=== PATIENT | male | born 1975 | race Hispanic/Latino ===

== ENCOUNTER 2021-02-04 08:49 | Day surgery (SDC) | payer BC ==
[2021-02-03 11:59] LABS: Absolute Lymphocytes (CBC) 2.1 K/uL (0.7-4.9); Basophils % 0.8 % (0-1.3); Hematocrit 39.5 % (39.6-49.0); MPV 8.1 fL (7.6-11.3); RBC Red Blood Cell Count 4.56 M/uL (4.33-5.43)
[2021-02-03 12:10] LABS: Potassium 3.8 mmol/L (3.5-5.1)
--- NOTE | 2021-02-03 12:17 | RAD REPORT ---
EXAM DESCRIPTION: RAD - Chest Pa And Lat (2 Views) - 02/03/2021 12:08 pm CLINICAL HISTORY: PREOP, SAME DAY SURGERY COMPARISON: No comparisons FINDINGS: Lines: None. Lungs: No evidence of edema or pneumonia. Pleural: No significant pleural effusions or pneumothorax. Cardiac: The heart size is within normal limits. Bones: No acute fractures. Other: IMPRESSION: No acute cardiopulmonary disease.
[2021-02-04] MEDS ORDERED: NA CHLORIDE 0.9% 1,000 ML ONE (09:38)
[2021-02-04] MEDS ORDERED: CEFAZOLIN/NS 1gm 1 GM/50 ML BAG ONE (09:50)
[2021-02-04] MEDS ORDERED: ACETAMINOPHEN 500 MG TAB ONE (11:22)
[2021-02-04] MEDS ORDERED: CELECOXIB 100 MG CAPSULE ONE (11:22)
[2021-02-04] MEDS ORDERED: LIDOCAINE 2% MPF 5 ML VIAL ONE (11:43)
[2021-02-04] MEDS ORDERED: FENTANYL CITR 100 MCG/2 ML ONE (11:43)
[2021-02-04] MEDS ORDERED: MIDAZOLAM HCL 2 MG/2 ML INJ ONE (11:43)
[2021-02-04] MEDS ORDERED: propofoL 200 MG/20 ML VIAL IV ONE (11:44)
[2021-02-04] MEDS ORDERED: ROCURONIUM 50 MG/5 ML VIAL IV ONE (11:44)
[2021-02-04] MEDS ORDERED: GLYCOPYRROLATE 0.2 MG/ML SYR ONE (11:50)
[2021-02-04] MEDS ORDERED: dexAMETHasone 10 MG/ML VIAL ONE (11:53)
[2021-02-04] MEDS ORDERED: ONDANSETRON 4 MG/2 ML VIAL ONE ×2 (11:53→13:42)
--- NOTE | 2021-02-04 12:37 | P.BOP ---
Preoperative diagnosis: incarcerated tender ventral hernia Postoperative diagnosis: same Primary procedure: Open repair of incarcerated ventral hernia [employer] Admin: CRISTHIAN FERRELL (HVAC REFRIGERATION TECHNICIAN) Estimated blood loss: <10cc Specimen: sac Findings: as above Anesthesia: General Complications: None Transferred to: Recovery Room Condition: Good
[2021-02-04] MEDS: HYDROMORPHONE HCL 1 MG/ML INJ ONE ×4 (12:58→13:36)
[2021-02-04] MEDS ORDERED: NEOSTIGMINE 1 MG/ML -5 ML ONE (13:00)
[2021-02-04] MEDS ORDERED: KETOROLAC 30 MG/ML INJ ONE (13:13)
[2021-02-04] MEDS ORDERED: CODEINE 30MG/APAP 300MG TAB ONE (14:44)
[2021-02-04 15:04] VITALS: BP 100/50; TEMP 98; O2SAT 98
--- NOTE | 2021-02-04 16:47 | EKG ---
Test Date: 2021-02-03 Test Time: 10:57:27 Clinical Auditor: CANDICE MEASUREMENT RESULTS: Intervals: Rate: 67 CT: 134 QRSD: 80 QT: 364 QTc: 384 [place]: P: 34 CT: 134 QRS: 36 T: 19 INTERPRETIVE STATEMENTS: Normal sinus rhythm Normal ECG No previous ECG available for comparison Electronically Signed On 02-04-21 16:43:07 CDT by Rodolfo Nogueira
--- NOTE | 2021-02-09 14:21 | DS ---
Date of Discharge: 02/04/2021 Diagnosis: Incarcerated tender ventral hernia. Procedure: Open repair of incarcerated ventral hernia. Disposition: Home. Activity: As tolerated. No heavy lifting. Plan: Follow up in my office in 1 week. Call for appointment at [phone]. Keep area dry for 48 lucila rs, then may shower. Medications: See orders. MANAV/ISABELLA Voice ID: [id number] Report ID: [id number]
--- NOTE | 2021-02-10 15:05 | OP ---
Date of Procedure: 02/09/2021 Surgeon: Ming Cruz MD Production Manager: TORRES Ibrahim. Preoperative Diagnosis: Incarcerated tender ventral hernia. Postoperative Diagnosis: Incarcerated tender ventral hernia. Procedure: Open repair of incarcerated ventral hernia. Specimen: Hernia sac. Anesthesia: General plus local. Indication: This is the case of a 45-year-old patient, who comes to us with a tender incarcerated ve ntral hernia. Benefits, alternatives, and risks of repair were fully explained, which include, but n ot limited to infection, bleeding, damage to adjacent structures, anesthesia complication, recurrence , NC, and even . He also understands this may not relieve any symptoms. He might need more maria de jesus n one surgical intervention. He understood, signed a consent. He understands the importance of no h eavy lifting, also importance of losing weight. Procedure In Detail: The patient was brought to the operating room, placed in supine position. Anes thesia was done without complication. A time-out was called. Abdomen was prepped and draped in usua l sterile fashion. Marcaine 0.5% was injected for local anesthetic followed by sharp incision of ski n in the ventral region. Incision was carried down to fascia, which was opened under direct vision. Peritoneum was encountered. Hernia sac was encountered. Hernia sac was opened. We noticed incarce rated omentum to the area with adhesions, so carefully we have to remove adhesions down and trying to remove some of the omentum without any bleeding that looks viable, so we were able to deliberate maria de jesus t and be able to bring it back to the abdomen. The hernia sac was removed, fascial edges were clean and we proceeded to close the fascial edges in a [id number]-[id number] fashion and #1 prolene multiple time s until closure. The area was irrigated. Subcutaneous tissue was closed with 3-0 chromic and the sk in was approximated. Sponge count and instrument counts correct. The patient tolerated the procedur e well. The patient was sent to recovery in stable condition. MNAAV/ISABELLA Voice ID: [id number] Report ID: [id number]
--- NOTE | 2021-02-10 15:05 | DS ---
Date of Discharge: 02/04/2021 Diagnosis: Incarcerated tender ventral hernia Procedure: Open repair of incarcerated ventral hernia. Disposition: Home. Activity: As tolerated. No heavy lifting. Plan: Follow up in my office in 1 week. Call for appointment at [phone]. Keep the area dry for 48 hours, then may shower. Medications: See orders. MANAV/ISABELLA Voice ID: [id number] Report ID: [id number]
== END 2021-02-04 14:55 | disposition home or self-care (01) ==
LOC: OR 08:49
PROVIDERS: ATTEND Surgery
PROC: 0WQF0ZZ Repair Abdominal Wall, Open Approach (ICD-10-PCS; principal; 2021-02-04 10:45)
DX: K43.6 Other and unspecified ventral hernia with obstruction, without gangrene (principal); Z20.822 Contact with and (suspected) exposure to COVID-19
CPT/HCPCS: 93005; 85025; 80048; 36415; 82947 ×2; 88302; 71046; 49561; U0003; J2704; J2250; J3010; J1100; J1170 ×2; J2710; J0690; J7030; J2405 ×2

== ENCOUNTER 2021-06-25 09:50 | Emergency (ER) | payer BC ==
--- OUTSIDE RECORDS SUMMARY | 2021-06-25 09:56 | XMS REPORT | Continuity of Care Document ---
:1975 Author Organization [facility] t Address [address] [place] [address] [place] [id number] Care Team Providers Name Role Phone Daly Attending Clinician Unavailable Problems This patient has no known problems. Allergies, Adverse Reactions, Alerts This patient has no known allergies or adverse reactions. Medications Ordered Filled Start Stop Current Ordering Indication Dosage Frequency Signature Comments Components Source Medication Medication Date Date Medication? Clinician (SIG) Name Name MetFORMIN MetFORMIN Yes Joel [address] [facility] HCl ER HCl ER 4-29 [facility] Fenofibrate Fenofibrate Yes Joel [address] [facility] 1-02 Daly with [facility] Lipitor Lipitor Yes Joel [address] [facility] Lisinopril Lisinopril Yes Joel [address] [facility] Zoloft Zoloft Yes [facility] Immunizations Ordered Filled Immunization Date Status Comments Sourc e Immunization Name Name Afluria single dose Afluria single dose 2019-04-[address] [facility] Procedures This patient has no known procedures. Encounters Start End Encounter Admission Attending Care Care Encounter Source Date/Time Date/Time Type Type Clinicians Facility Department ID 2021-05-27 Outpatient Daly, [facility]LMLC [facility] [id number] [facility] 12[facility]02:59 Joel [id number] [facility] 2021-05-27 Outpatient Daly, [facility] Joel [id number] [facility] 2021-05-27 Outpatient Daly, [facility] 11:19[facility] Joel [id number] [facility] 2021-05-27 Outpatient Daly, [facility]18[facility] Joel [id number] [facility] 2021-05-27 Outpatient Daly, [facility]LML[facility]17[facility]38 Joel [id number] [facility] 2021-05-27 Outpatient Daly, [facility] Joel [id number] [facility] 2020-03-10 2020-03-10 Outpatient [facility] [id number] [facility] 2020-03-10 2020-03-10 Outpatient [facility] [id number] [facility] 2020-03-04 2020-03-04 Outpatient [facility] [id number] [facility] 2020-03-03 2020-03-03 Outpatient [facility] [id number] [facility] 2020-02-28 2020-02-28 Outpatient [facility] [id number] [facility] 2020-02-22 2020-02-22 Outpatient [facility] [id number] [facility] 2020-02-21 2020-02-21 Outpatient [facility] [id number] [facility] 2020-02-21 2020-02-21 [facility] [id number] [facility] 2020-02-18 2020-02-18 Outpatient [facility] [id number] [facility] 2019-08-29 2019-08-29 [facility] [id number] [facility] 08[facility]30[facility]00 08:30:00 [facility] [employer] [facility] 2019-05-31 2019-05-31 [facility] [id number] [facility] 14[facility]00:00 14:00:00 [facility] [employer] [facility] 2019-05-11 2019-05-11 [facility] [id number] [facility] 10:59:00 10:59:00 [facility] [employer] [facility] 2019-05-03 2019-05-03 [facility] [id number] [facility] 09:15:00 09:15:00 [facility] [employer] [facility] 2019-04-12 2019-04-12 [facility] [id number] [facility] 13:14:00 13:14:00 [facility] [employer] [facility] 2019-04-11 2019-04-11 [facility] [id number] [facility] 08:15:00 08:15:00 [facility] [employer] [facility] Results This patient has no known results.
[2021-06-25 10:25] LABS: Absolute Lymphocytes (CBC) 1.4 K/uL (0.7-4.9); Hematocrit 45.7 % (39.6-49.0); Lymphocytes % 12.1 % (15.3-44.8); MPV 8.1 fL (7.6-11.3); RBC Red Blood Cell Count 5.43 M/uL (4.33-5.43)
[2021-06-25] MEDS ORDERED: NA CHLORIDE 0.9% 1,000 ML ONE (10:36)
[2021-06-25] MEDS ORDERED: MORPHINE 4 MG/ML SYR ONE (10:36)
[2021-06-25] MEDS ORDERED: ONDANSETRON 4 MG/2 ML VIAL ONE (10:36)
[2021-06-25 10:52] LABS: Albumin 4.3 g/dL (3.4-5.0); Bilirubin Direct 0.2 mg/dL (0-0.2); Bilirubin Total 0.7 mg/dL (0.2-1.0); Protein, Total 7.9 g/dL (6.4-8.2)
--- NOTE | 2021-06-25 11:02 | RAD REPORT ---
EXAM DESCRIPTION: CT - Stone Protocol - 06/25/2021 10:43 am CLINICAL HISTORY: left sided abdominal pain COMPARISON: No comparisons TECHNIQUE: Axial 3 mm thick images were obtained without oral or IV contrast. The wludy-xn-chuv span s the entirety of the system including uppermost abdomen and lung bases. All CT scans are performed using dose optimization technique as appropriate and may include automated exposure control or mA/KV adjustment according to patient size. FINDINGS: A 4 mm juxtapleural nodule is present right lower lobe abutting the major fissure. A 10 mm calcified nodule is present in the lingula of the left upper lobe. No acute lung parenchymal process . No pneumothorax or pleural effusion. Mild left-sided hydronephrosis present secondary to a 2-3 mm stone at the UVJ. Left kidney is mildly edematous. No other left-sided calculi. Small 3 mm calyx calcifications seen upper pole of the right kidney. No suspicious renal masses. Isodense masses and pyelonephritis are not excluded on a stone pr otocol CT scan. No significant adrenal finding. Urinary bladder is contracted. Liver shows a very pronounced fatty infiltration pattern. Spleen and pancreas show no suspicious find ings. No gallbladder or biliary tree abnormality identified. No suspicious bowel findings. Appendix is normal. No hernia, mass or bulky lymphadenopathy noted. No free air, free fluid or inflammatory stranding. No significant bony abnormality. IMPRESSION: Mild left-sided hydronephrosis secondary to a 2-3 mm UVJ stone. Isodense masses and pyelonephritis are not excluded on stone protocol technique. Calcified and noncalcified nodules are seen in the lower lung solares. Based on size and imaging bart cteristics, no ongoing monitoring or surveillance is recommended.
[2021-06-25] MEDS ORDERED: KETOROLAC 30 MG/ML INJ ONE (11:13)
[2021-06-25 12:36] LABS: Urine Blood 3+ (Negative); Urine Glucose Negative (Negative); Urine Protein Negative (Negative); Urine Specific Gravity 1.025 (1.005-1.030); Urine pH 5.5 (5.0-7.0)
--- NOTE | 2021-06-25 12:39 | ER ---
Nurse's Notes [facility] Name: Eliot Ball III Age: 45 yrs Sex: Male : 1975 Arrival Date: 06/25/2021 Time: 09:50 Bed 14 Private MD: Allan Wilson C Diagnosis: Calculus of ureter Presentation: 06/25 09:55 Chief complaint: Patient states: non stop pain since 630 this morning, nausea and tw2 vomiting. small bit of diarrhea. pain is nonstop. Coronavirus screen: At this time, the client does not indicate any symptoms associated with coronavirus-19. Ebola Screen: Patient denies travel to an Ebola-affected area in the 21 days before illness onset. Initial Sepsis Screen: Does the patient meet any 2 criteria? No. Patient's initial sepsis screen is negative. Does the patient have a suspected source of infection? No. Patient's initial sepsis screen is negative. Risk Assessment: Do you want to hurt yourself or someone else? Patient reports no desire to harm self or others. Onset of symptoms was June 25, 2021. 09:55 Method Of Arrival: Ambulatory tw2 09:55 Acuity: LENIN 3 tw2 Triage Assessment: 09:57 General: Appears uncomfortable, Behavior is fussy, inappropriate for age. Pain: tw2 Complains of pain in abdomen. GI: Reports lower abdominal pain, upper abdominal pain, nausea. Historical: - Allergies: 09:57 No Known Allergies; tw2 - Home Meds: 09:57 atorvastatin oral [Active]; fenofibrate oral [Active]; tw2 10:05 Lisinopril Oral [Active]; "theres i think 2 more but i cant remember right now" tw2 [Active]; - PMHx: 10:05 Hypertensive disorder; Hypercholesterolemia; tw2 - PSHx: 09:57 hernia, abdominal; tw2 - Immunization history:: Client reports receiving the 2nd dose of the Covid vaccine. - Social history:: Smoking status: Patient denies any tobacco usage or history of. Patient uses alcohol, occasionally. Screenin:04 Abuse screen: Denies threats or abuse. Nutritional screening: No deficits noted. tw2 Tuberculosis screening: No symptoms or risk factors identified. Fall Risk None identified. Assessment: 10:03 General: Appears uncomfortable, well groomed, Behavior is calm, cooperative, cb5 appropriate for age. Pain: Complains of pain in abdomen Pain currently is 4 out of 10 on a pain scale. Neuro: No deficits noted. Level of Consciousness is awake, alert, obeys commands, Oriented to person, place, time, situation, Appropriate for age. Cardiovascular: No deficits noted. Respiratory: No deficits noted. GI: Bowel sounds present X 4 quads. Abd is soft Abdomen is tender to palpation Reports nausea, vomiting. : No deficits noted. EENT: No deficits noted. Derm: No deficits noted. Musculoskeletal: No deficits noted. 10:37 General: pt left ER dept fot CT scan. cb5 10:46 General: pt is back from CT scan. cb5 10:46 Pain: Complains of pain in abdomen Pain currently is 3 out of 10 on a pain scale. cb5 11:10 Pain: Complains of pain in abdomen Pain currently is 7 out of 10 on a pain scale. cb5 11:14 Reassessment: Patient and/or family updated on plan of care and expected duration. Pain cb5 level reassessed. 11:40 Reassessment: pt stated his pain is uncontrol and thanked the staff. Pain: Complains of cb5 pain in abdomen Pain currently is 3 out of 10 on a pain scale. 12:14 Reassessment: Patient and/or family updated on plan of care and expected duration. Pain cb5 level reassessed. Patient states symptoms have improved. Vital Signs: 09:55 BP 157 / 112; Pulse 83; Resp 17; Temp 98.2(TE); Weight 95.25 kg (R); Pain 10/10; tw2 10:10 BP 145 / 77; Pulse 78; Resp 16; Pulse Ox 98% ; Pain 6/10; cb5 12:10 BP 135 / 70; Pulse 71; Resp 16; Temp 98.6; Pulse Ox 98% ; Pain 0/10; cb5 ED Course: 09:50 Patient arrived in ED. as 09:51 Allan Wilson MD is Private Physician. as 09:55 Keenan Jaeger MD is Attending Physician. kdr 09:55 [facility]. m 09:57 Triage completed. tw2 09:57 Arm band placed on. tw2 09:58 Bed in low position. Call light in reach. tw2 10:03 Ramandeep Jacob, RN is Primary Nurse. cb5 10:36 Hepatic Function Sent. cb5 10:36 Basic Metabolic Panel Sent. cb5 10:36 Lipase Sent. cb5 10:43 CT Stone Protocol In Process Unspecified. EDMS 12:36 Juan Diego Damico MD is Referral Physician. jmm 13:01 IV discontinued. cb5 Administered Medications: 10:36 Drug: NS 0.9% 1000 ml Route: IV; Rate: 1 bolus; Site: right antecubital; cb5 10:37 Drug: morphine 4 mg Route: IVP; Site: right antecubital; cb5 10:37 Drug: Zofran (Ondansetron) 4 mg Route: IVP; Site: right antecubital; cb5 11:13 Drug: Ketorolac 15 mg Route: IVP; Site: right antecubital; cb5 Outcome: 12:38 Discharge ordered by . jmm 13:00 Discharged to home ambulatory. cb5 13:00 Condition: stable 13:00 Discharge instructions given to patient. 13:04 Patient left the ED. iw Signatures: Dispatcher [employer] EDMS Keenan Jaeger MD MD kdr Alexi Mcdermott PA PA Joann Rice as Angella Rainey, JOSE MARIA MOISE iw Tata Win RN RN tw2 Ramandeep Jacob, RN RN cb5 Corrections: (The following items were deleted from the chart) 10:05 09:55 Acuity: LENIN 2 tw tw
--- NOTE | 2021-06-25 12:39 | EDPHYS ---
Physician Documentation [facility] Name: Eliot Ball III Age: 45 yrs Sex: Male : 1975 Arrival Date: 06/25/2021 Time: 09:50 Bed 14 Private MD: Allan Wilson C ED Physician Keenan Jaeger HPI: 06/25 10:14 This 45 yrs old Male presents to ER via Ambulatory with complaints of jmm Abdominal Pain. 10:14 The patient presents with abdominal pain in the left lower quadrant. Onset: The jmm symptoms/episode began/occurred acutely, today. The symptoms do not radiate. Associated signs and symptoms: Pertinent positives: nausea. The symptoms are described as achy. Modifying factors: The symptoms are alleviated by nothing, the symptoms are aggravated by nothing. Historical: - Allergies: 09:57 No Known Allergies; tw2 - Home Meds: 09:57 atorvastatin oral [Active]; fenofibrate oral [Active]; tw2 10:05 Lisinopril Oral [Active]; "theres i think 2 more but i cant remember right now" tw2 [Active]; - PMHx: 10:05 Hypertensive disorder; Hypercholesterolemia; tw2 - PSHx: 09:57 hernia, abdominal; tw2 - Immunization history:: Client reports receiving the 2nd dose of the Covid vaccine. - Social history:: Smoking status: Patient denies any tobacco usage or history of. Patient uses alcohol, occasionally. ROS: 12:22 Constitutional: Negative for fever, chills, and weight loss, Cardiovascular: Negative jmm for chest pain, palpitations, and edema, Respiratory: Negative for shortness of breath, cough, wheezing, and pleuritic chest pain. 12:22 Abdomen/GI: Positive for abdominal pain. 12:22 All other systems are negative. Exam: 12:22 Constitutional: This is a well developed, well nourished patient who is awake, alert, jmm and in no acute distress. Head/Face: atraumatic. Eyes: EOMI, no conjunctival erythema appreciated ENT: Moist Mucus Membranes Neck: Trachea midline, Supple Chest/axilla: Normal chest wall appearance and motion. Cardiovascular: Regular rate and rhythm. No edema appreciated Respiratory: Normal respirations, no respiratory distress appreciated 12:22 Skin: General appearance color normal MS/ Extremity: Moves all extremities, no obvious deformities appreciated, no edema noted to the lower extremities Neuro: Awake and alert Psych: Behavior is normal, Mood is normal, Patient is cooperative and pleasant 12:22 Abdomen/GI: Inspection: abdomen appears normal, Bowel sounds: normal, Palpation: soft, mild abdominal tenderness, in the left lower quadrant. Vital Signs: 09:55 BP 157 / 112; Pulse 83; Resp 17; Temp 98.2(TE); Weight 95.25 kg (R); Pain 10/10; tw2 10:10 BP 145 / 77; Pulse 78; Resp 16; Pulse Ox 98% ; Pain 6/10; cb5 12:10 BP 135 / 70; Pulse 71; Resp 16; Temp 98.6; Pulse Ox 98% ; Pain 0/10; cb5 MDM: 10:14 Patient medically screened. [facility] 12:25 Data reviewed: vital signs, nurses notes. Counseling: I had a detailed discussion with [facility] the patient and/or guardian regarding: the historical points, exam findings, and any diagnostic results supporting the discharge/admit diagnosis, lab results, radiology results, the need for outpatient follow up, to return to the emergency department if symptoms worsen or persist or if there are any questions or concerns that arise at home. ED course: Patient states he feels much better. Patient advised follow-up PCP and otherwise given strict return precautions. Patient understood agrees plan of care.. 06/25 10:15 Order name: Basic Metabolic Panel; Complete Time: 10:53 [facility] 06/25 10:15 Order name: CBC with Diff; Complete Time: 10:51 [facility] 06/25 10:15 Order name: Hepatic Function; Complete Time: 10: [facility] 06/25 10:15 Order name: Lipase; Complete Time: 10:53 [facility] 06/25 10:20 Order name: CT Stone Protocol; Complete Time: 11:05 [facility] 06/25 12:36 Order name: Urine Dipstick-Ancillary; Complete Time: 12:41 [facility] 06/25 10:15 Order name: IV Saline Lock; Complete Time: 10:36 [facility] 06/25 10:15 Order name: Labs collected and sent; Complete Time: 10:36 [facility] 06/25 12:27 Order name: Urine Dipstick-Ancillary (obtain specimen); Complete Time: 12:30 [facility] Administered Medications: 10:36 Drug: NS 0.9% 1000 ml Route: IV; Rate: 1 bolus; Site: right antecubital; cb5 10:37 Drug: morphine 4 mg Route: IVP; Site: right antecubital; cb5 10:37 Drug: Zofran (Ondansetron) 4 mg Route: IVP; Site: right antecubital; cb5 11:13 Drug: Ketorolac 15 mg Route: IVP; Site: right antecubital; cb5 Disposition: 17:40 Co-signature as Attending Physician, Keenan Jaeger MD I agree with the assessment and kdr plan of care. Disposition Summary: 06/25/21 12:38 Discharge Ordered Location: Home [facility] Condition: Stable [facility] Diagnosis - Calculus of ureter [facility] Followup: [facility] - With: Juan Diego Damico MD - When: 2 - 3 days - Reason: Recheck today's complaints, Continuance of care, Re-evaluation by your physician Discharge Instructions: - Discharge Summary Sheet [facility] - Kidney Stones [facility] Forms: - Medication Reconciliation Form [facility] - Thank You Letter [facility] - Antibiotic Education [facility] - Prescription Opioid Use [facility] Prescriptions: - tamsulosin 0.4 mg Oral capsule - take 1 capsule by ORAL route once daily 1/2 hour following the same meal each [facility] day; 20 capsule; Refills: 0, Product Selection Permitted - Ultracet 37.5-325 mg Oral Tablet - take 1 tablet by ORAL route every 6 hours - for up to 5 days; do not exceed 8 jmm tablets per day.; 12 tablet; Refills: 0, Product Selection Permitted Signatures: Dispatcher [employer] [facility] Keenan Jaeger MD MD kdr Mickail, Joel, PA PA [facility] Tata Win, RN RN tw2 Ramandeep Jacob, RN RN cb5
[2021-06-25 13:16] VITALS: O2SAT 98
[2021-06-25 13:18] VITALS: BP 135/70; TEMP 98.6
== END 2021-06-25 13:04 | disposition home or self-care (01) ==
LOC: ER 09:50
DX: N20.1 Calculus of ureter (principal); I10 Essential (primary) hypertension
CPT/HCPCS: 85025; 80048; 36415; 80076; 81003; 83690; 76377; 74176; 96375; 96374; 99283; J7030; J2405

== ENCOUNTER 2021-06-27 00:05 | Emergency (ER) | payer BC ==
--- OUTSIDE RECORDS SUMMARY | 2021-06-27 00:08 | XMS REPORT | Continuity of Care Document ---
:1975 Author Organization [facility] t Address [address] [place] [address] [place] [id number] Care Team Providers Name Role Phone Daly [...] 2019-04-[address] [facility] - 00:00:00 [facility] Outpatient [facility] Procedures This patient has no known procedures. Encounters Start End Encounter Admission Attending Care Care Encounter Source Date/Time Date/Time Type Type Clinicians Facility Department ID 2021-05-27 Outpatient Daly, [facility]ML[facility] [id number] [facility] 12:02:59 Joel [id number] [facility] 2021-05-27 Outpatient Daly, [facility]LML[facility] [id number] [facility] 2021-05-27 Outpatient Daly, [facility]LML[facility] Joel [id number] [facility] 2021-05-27 Outpatient Daly, [facility]LML[facility] Joel [id number] [facility] 2021-05-27 Outpatient Daly, [facility]LML[facility] Joel [id number] [facility] 2021-05-27 Outpatient Daly, [facility] Joel [id number] [facility] 2020-03-10 2020-03-10 Outpatient [facility]LML[facility] [id number] [facility] 2020-03-10 2020-03-10 Outpatient [facility] [id number] [facility] 2020-03-04 2020-03-04 Outpatient [facility] [id number] [facility] 2020-03-03 2020-03-03 Outpatient [facility] [id number] [facility] 2020-02-28 2020-02-28 Outpatient [facility] [id number] [facility] 2020-02-22 2020-02-22 Outpatient [facility] [id number] [facility] 2020-02-21 2020-02-21 Outpatient [facility] [id number] [facility] 2020-02-21 2020-02-21 Out[facility] [id number] [facility] 2020-02-18 2020-02-18 Outpatient [facility] [id number] [facility] 2019-08-29 2019-08-29 [facility] [id number] [facility] 08[facility] 2019-05-31 2019-05-31 [facility] [id number] [facility] 14[facility] 14[facility] 2019-05-11 2019-05-11 [facility] [id number] 10[facility]59[facility]00 10:59[facility]00 [facility] 2019-05-03 2019-05-03 [facility] [id number] 09:15[facility]00 09:15[facility] 2019-04-12 2019-04-12 [facility] [id number] 13:14[facility]00 13:14:00 [facility] 2019-04-11 2019-04-11 [facility] [id number] 08:15[facility]00 08:15:00 [facility] Results This patient has no known results.
[2021-06-27] MEDS ORDERED: KETOROLAC 30 MG/ML INJ ONE (00:31)
[2021-06-27 01:03] LABS: Absolute Lymphocytes (CBC) 1.6 K/uL (0.7-4.9); Hematocrit 41.7 % (39.6-49.0); Lymphocytes % 27.7 % (15.3-44.8); MPV 8.4 fL (7.6-11.3)
[2021-06-27 01:11] LABS: Potassium 3.7 mmol/L (3.5-5.1)
[2021-06-27 01:44] LABS: Urine Blood 2+ (Negative); Urine Glucose Trace (Negative); Urine Protein Negative (Negative)
[2021-06-27 01:58] LABS: Urine Bacteria 20-50 /HPF (NONE SEEN); Urine RBC <5 /HPF (NONE SEEN); Urine Yeast FEW (NONE SEEN)
--- NOTE | 2021-06-27 02:25 | EDPHYS ---
Physician Documentation [facility] Name: Eliot Ball III Age: 45 yrs Sex: Male : 1975 Arrival Date: 06/27/2021 Time: 00:08 Bed 14 Private MD: ED Physician Ez Cox HPI: 06/27 00:34 This 45 yrs old Male presents to ER via Ambulatory with complaints of Possible kb Kidney Stone, Low Back Pain. 00:34 The patient complains of pain in the left flank. The pain does not radiate. Onset: The kb symptoms/episode began/occurred 1 hour(s) ago. Modifying factors: The symptoms are alleviated by nothing. the symptoms are aggravated by palpation/percussion. Associated signs and symptoms: The patient has no apparent associated signs or symptoms. Severity of pain: At its worst the pain was moderate severe in the emergency department the pain is unchanged. The patient has experienced similar episodes in the past. The patient has not recently seen a physician. Pt reports left flank pain that started an hour ago. States he was diagnosed with a kidney stone yesterday. Historical: - Allergies: 00:13 No Known Allergies; tw5 - Home Meds: 00:13 sertraline 150 mg tab oral tab 1 tab once daily [Active]; atorvastatin oral [Active]; tw5 lisinopril 10 mg Oral tab 1 tab once daily [Active]; metformin 750 mg Oral Tb24 1 tab once daily [Active]; fenofibrate oral [Active]; - PMHx: 00:13 Hypercholesterolemia; Hypertensive disorder; Kidney stone; tw5 - PSHx: 00:13 hernia, abdominal; tw5 - Immunization history:: Flu vaccine is up to date. - Social history:: Smoking status: Patient denies any tobacco usage or history of. ROS: 00:33 Constitutional: Negative for fever, chills, and weight loss. kb 00:33 : Positive for flank pain, of the left flank. 00:33 All other systems are negative. Exam: 00:33 Constitutional: This is a well developed, well nourished patient who is awake, alert, kb and in no acute distress. Head/Face: Normocephalic, atraumatic. ENT: Moist Mucous membranes Respiratory: Respirations even and unlabored. No increased work of breathing. Talking in full sentences Abdomen/GI: Soft, non-tender. No distention Skin: Warm, dry with normal turgor. Normal color. MS/ Extremity: Pulses equal, no cyanosis. Neurovascular intact. Full, normal range of motion. Neuro: Awake and alert, GCS 15, oriented to person, place, time, and situation. Moves all extremities. Normal gait. Psych: Awake, alert, with orientation to person, place and time. Behavior, mood, and affect are within normal limits. 00:33 Back: CVA tenderness, that is moderate, is noted on the left. Vital Signs: 00:11 BP 146 / 95; Pulse 83; Resp 18; Temp 98.8(O); Pulse Ox 97% on R/A; Weight 95.25 kg; tw5 Height 5 ft. 9 in. (175.26 cm); Pain 8/10; 01:42 BP 127 / 75; Pulse 67; Resp 15; Pulse Ox 98% on R/A; ll3 02:57 BP 126 / 76; Pulse 66; Resp 16; Pulse Ox 98% on R/A; ll3 00:11 Body Mass Index 31.01 (95.25 kg, 175.26 cm) tw5 MDM: 00:21 Patient medically screened. kb 00:32 Data reviewed: vital signs, nurses notes. Data interpreted: Pulse oximetry: on room air kb is 97 %. Interpretation: normal. 02:23 Counseling: I had a detailed discussion with the patient and/or guardian regarding: the kb historical points, exam findings, and any diagnostic results supporting the discharge/admit diagnosis, lab results, radiology results, the need for outpatient follow up, a urologist, smoking cessation. 06/27 00:25 Order name: Basic Metabolic Panel kb 06/27 00:25 Order name: CBC with Diff kb 06/27 00:26 Order name: Basic Metabolic Panel; Complete Time: 01:13 EDMS 06/27 00:26 Order name: CBC with Automated Diff; Complete Time: 01:09 EDMS 06/27 01:10 Order name: Urine Microscopic Only; Complete Time: 01:58 EDMS 06/27 00:21 Order name: CT Stone Protocol kb 06/27 00:25 Order name: IV Saline Lock; Complete Time: 00:44 kb 06/27 00:25 Order name: Labs collected and sent; Complete Time: 00:44 kb 06/27 01:43 Order name: Urine Dipstick-Ancillary; Complete Time: 01:55 EDWY 06/27 01:59 Order name: Urine Culture [facility] 06/27 01:09 Order name: Urine Dipstick-Ancillary (obtain specimen); Complete Time: 01:43 kb Administered Medications: 00:44 Drug: Ketorolac 30 mg Route: IVP; Site: right antecubital; ll3 01:43 Follow up: Response: No adverse reaction; Marked relief of symptoms ll3 02:44 Drug: Magnesium Sulfate 1 grams Route: IVPB; Infused Over: 30 mins; Site: left ll3 antecubital; 03:21 Follow up: Response: No adverse reaction; IV Status: Completed infusion; IV Intake: ll3 100ml 02:44 Drug: Cipro (ciprofloxacin) 500 mg Route: PO; ll3 03:21 Follow up: Response: No adverse reaction ll3 Disposition: 04:14 Co-signature as Attending Physician, Ez Cox MD. [email or web address] Disposition Summary: 06/27/21 02:24 Discharge Ordered Location: Home kb Condition: Stable kb Diagnosis - Calculus of ureter kb - UTI/ Urinary tract infection, site not specified kb Followup: kb - With: Emergency Department - When: As needed - Reason: Worsening of condition Followup: kb - With: Private Physician - When: 2 - 3 days - Reason: Recheck today's complaints, Continuance of care, Re-evaluation by your physician Discharge Instructions: - Discharge Summary Sheet kb - Kidney Stones, [id number] kb - Urinary Tract Infection, Adult, [id number] kb Forms: - Medication Reconciliation Form kb - Thank You Letter kb - Antibiotic Education kb - Prescription Opioid Use kb Prescriptions: - Diclofenac Sodium 75 mg Oral tablet,delayed release (DR/EC) - take 1 tablet by ORAL route 2 times per day As needed; 30 tablet; Refills: 0, kb Product Selection Permitted - Cipro 500 mg Oral Tablet - take 1 tablet by ORAL route every 12 hours for 7 days; 14 tablet; Refills: 0, kb Product Selection Permitted Signatures: Dispatcher [employer] [facility] Chichi Navarro, KM-C Ez Kwok MD MD 7 Kathy Pretty [facility] Fabián Boston RN RN 3
--- NOTE | 2021-06-27 02:25 | ER ---
Nurse's Notes [facility] Name: Eliot Ball III Age: 45 yrs Sex: Male : 1975 Arrival Date: 06/27/2021 Time: 00:08 Bed 14 Private MD: Diagnosis: Calculus of ureter;UTI/ Urinary tract infection, site not specified Presentation: 06/27 00:11 Chief complaint: Patient states: "I was here yesterday for the same thing, but I feel tw5 like maybe another kidney stone has dropped. It is just getting worse and worse.". Coronavirus screen: Vaccine status: Patient reports receiving the 2nd dose of the covid vaccine. Moderna. Ebola Screen: Patient negative for fever greater than or equal to 101.5 degrees Fahrenheit, and additional compatible Ebola Virus Disease symptoms Patient denies exposure to infectious person. Patient denies travel to an Ebola-affected area in the 21 days before illness onset. Initial Sepsis Screen: Does the patient meet any 2 criteria? No. Patient's initial sepsis screen is negative. Does the patient have a suspected source of infection? No. Patient's initial sepsis screen is negative. Risk Assessment: Do you want to hurt yourself or someone else? Patient reports no desire to harm self or others. 00:11 Method Of Arrival: Ambulatory tw 00:11 Acuity: LENIN 3 tw5 00:13 Onset of symptoms was June 26, 2021 at 11:15. tw5 Triage Assessment: 00:13 General: Appears uncomfortable, Behavior is calm, cooperative, appropriate for age. tw5 Pain: Complains of pain in anterior aspect of left lateral abdomen, posterior aspect of left lateral abdomen and left lower quadrant Pain currently is 8 out of 10 on a pain scale. GI: Patient currently denies nausea. Historical: - Allergies: 00:13 No Known Allergies; tw5 - Home Meds: 00:13 sertraline 150 mg tab oral tab 1 tab once daily [Active]; atorvastatin oral [Active]; tw5 lisinopril 10 mg Oral tab 1 tab once daily [Active]; metformin 750 mg Oral Tb24 1 tab once daily [Active]; fenofibrate oral [Active]; - PMHx: 00:13 Hypercholesterolemia; Hypertensive disorder; Kidney stone; tw5 - PSHx: 00:13 hernia, abdominal; tw5 - Immunization history:: Flu vaccine is up to date. - Social history:: Smoking status: Patient denies any tobacco usage or history of. Screenin:20 Abuse screen: Denies threats or abuse. Nutritional screening: No deficits noted. ll3 Tuberculosis screening: No symptoms or risk factors identified. 00:50 Fall Risk No fall in past 12 months (0 pts). No secondary diagnosis (0 pts). IV access ll3 (20 points). Ambulatory Aid- None/Bed Rest/Nurse Assist (0 pts). Gait- Normal/Bed Rest/Wheelchair (0 pts) Mental Status- Oriented to own ability (0 pts). Total Turpin Fall Scale indicates No Risk (0-24 pts). Assessment: 00:20 General: Appears uncomfortable, Behavior is cooperative, anxious. General: States was ll3 here yesterday and was told has a kidney stone, states in a lot of pain 7/10. Pain: Complains of pain in left flank and left lower quadrant Pain does not radiate. Pain currently is 7 out of 10 on a pain scale. at worst was 10 out of 10 on a pain scale. Is continuous. Neuro: Level of Consciousness is awake, alert, obeys commands, Oriented to person, place, time, situation. Cardiovascular: Patient's skin is warm and dry. Respiratory: Respiratory effort is even, unlabored, Respiratory pattern is regular, symmetrical. Derm: Skin is pink, warm \\T\\ dry. Musculoskeletal: Circulation, motion, and sensation intact. 01:42 Reassessment: Patient and/or family updated on plan of care and expected duration. Pain ll3 level reassessed. Patient is alert, oriented x 3, equal unlabored respirations, skin warm/dry/pink. Patient states symptoms have improved. 01:43 GI: Bowel sounds present X 4 quads. Abd is soft and non tender X 4 quads. ll3 02:30 Reassessment: Patient and/or family updated on plan of care and expected duration. Pain ll3 level reassessed. Patient is alert, oriented x 3, equal unlabored respirations, skin warm/dry/pink. Patient states feeling better. 02:59 Reassessment: Administering medications ordered at discharge, when medication ll3 administration is complete pt will be discharged. Vital Signs: 00:11 BP 146 / 95; Pulse 83; Resp 18; Temp 98.8(O); Pulse Ox 97% on R/A; Weight 95.25 kg; tw5 Height 5 ft. 9 in. (175.26 cm); Pain 8/10; 01:42 BP 127 / 75; Pulse 67; Resp 15; Pulse Ox 98% on R/A; ll3 02:57 BP 126 / 76; Pulse 66; Resp 16; Pulse Ox 98% on R/A; ll3 00:11 Body Mass Index 31.01 (95.25 kg, 175.26 cm) tw5 ED Course: 00:08 Patient arrived in ED. ja2 00:13 Triage completed. tw5 00:13 Arm band placed on right wrist. tw5 00:20 Patient has correct armband on for positive identification. Bed in low position. Call ll3 light in reach. Side rails up X 1. 00:21 Chichi Navarro [facility]C [facility] kb 00:21 Ez Cox MD is Attending Physician. kb 00:44 Initial lab(s) drawn, by ny, sent to lab. Inserted saline lock: 22 gauge in left ll3 antecubital area, using aseptic technique. Blood collected. 01:15 Fabián Boston, RN is Primary Nurse. ll3 01:16 CT Stone Protocol In Process Unspecified. EDMS 01:48 Urine Microscopic Only Sent. ds4 03:00 Basic Metabolic Panel Sent. ll3 03:00 CBC with Diff Sent. ll3 03:20 No provider procedures requiring assistance completed. IV discontinued, intact, ll3 bleeding controlled, No redness/swelling at site. Pressure dressing applied. Administered Medications: 00:44 Drug: Ketorolac 30 mg Route: IVP; Site: right antecubital; ll3 01:43 Follow up: Response: No adverse reaction; Marked relief of symptoms ll3 02:44 Drug: Magnesium Sulfate 1 grams Route: IVPB; Infused Over: 30 mins; Site: left ll3 antecubital; 03:21 Follow up: Response: No adverse reaction; IV Status: Completed infusion; IV Intake: ll3 100ml 02:44 Drug: Cipro (ciprofloxacin) 500 mg Route: PO; ll3 03:21 Follow up: Response: No adverse reaction ll3 Intake: 03:21 IV: 100ml; Total: 100ml. ll3 Outcome: 02:24 Discharge ordered by . kb 03:20 Discharged to home ambulatory. ll3 03:20 Condition: stable 03:20 Discharge instructions given to patient, Instructed on discharge instructions, follow up and referral plans. medication usage, Demonstrated understanding of instructions, follow-up care, medications, Prescriptions given X 2. 03:20 Patient left the ED. ll3 Signatures: Dispatcher [employer] EDMS Chichi Navarro, BOX TRUCK DRIVER-C BOX TRUCK DRIVER-Ckb Ryley Esposito ds4 Olimpia Boyd 2 Kathy Pretty 5 Fabián Boston, JOSE MARIA RN ll3 Corrections: (The following items were deleted from the chart) 01:19 00:20 Fall Risk No fall in past 12 months (0 pts). No secondary diagnosis (0 pts). IV ll3 access (20 points). Ambulatory Aid- None/Bed Rest/Nurse Assist (0 pts). Gait- Normal/Bed Rest/Wheelchair (0 pts) Mental Status- Oriented to own ability (0 pts). Total Turpin Fall Scale indicates No Risk (0-24 pts). ll3
[2021-06-27] MEDS ORDERED: MAGNESIUM SULFATE 1 gm IVPB 1 GM/100 ML BAG IV ONE (02:37)
[2021-06-27] MEDS ORDERED: CIPROFLOXACIN HCL 500 MG TAB ONE (02:37)
[2021-06-27 03:35] VITALS: TEMP 98.8
[2021-06-27 03:37] VITALS: O2SAT 98
[2021-06-27 03:38] VITALS: BP 126/76
--- NOTE | 2021-06-27 21:43 | RAD REPORT ---
EXAM DESCRIPTION: CT Abdomen and Pelvis Without Intravenous Contrast CLINICAL HISTORY: The patient is 45 years old and is Male; FLANK PAIN TECHNIQUE: Axial computed tomography images of the abdomen and pelvis without intravenous contrast. Sagittal and coronal reformatted images were created and reviewed. This CT exam was performed usi ng one or more of the following dose reduction techniques: automated exposure control, adjustment o f the mA and/or kV according to patient size, and/or use of iterative reconstruction technique. COMPARISON: CT stone protocol June 25, 2021. FINDINGS: Lung bases: Unremarkable. No mass. No consolidation. ABDOMEN: Liver: Diffuse hepatic steatosis. Gallbladder and bile ducts: Unremarkable. No calcified stones. No ductal dilation. Pancreas: Unremarkable. No ductal dilation. Spleen: Unremarkable. No splenomegaly. Adrenals: Unremarkable. No mass. Kidneys and ureters: 3 mm stone in the bladder at the left UVJ. Mild left hydronephrosis and hamilton nephric stranding. Nonobstructing calcification in the right kidney. Stomach and bowel: Unremarkable. No obstruction. No mucosal thickening. PELVIS: Appendix: The appendix is normal. Bladder: Unremarkable. No stones. Reproductive: Unremarkable as visualized. ABDOMEN and PELVIS: Intraperitoneal space: Unremarkable. No free air. No significant fluid collection. Bones/joints: No acute fracture. No dislocation. Soft tissues: Small fat-containing inguinal hernias, right greater than left. Vasculature: Scattered atherosclerotic vascular calcifications. No abdominal aortic aneurysm. Lymph nodes: Unremarkable. No enlarged lymph nodes. IMPRESSION: 3 mm stone in the bladder at the left UVJ. Mild left hydronephrosis and perinephric stra nding. Electronically signed by: Prabhu Trotter MD 06/27/2021 2:09 AM BIOMEDICAL ELECTRONICS TECHNICIAN Due to temporary technical issues with the PACS/Fluency reporting system, reports are being signed by the in house radiologists without review as a courtesy to insure prompt reporting. The interpreting radiologist is fully responsible for the content of the report.
== END 2021-06-27 03:20 | disposition home or self-care (01) ==
LOC: ER 00:05
DX: N20.1 Calculus of ureter (principal); N39.0 Urinary tract infection, site not specified; I10 Essential (primary) hypertension; E78.00 Pure hypercholesterolemia, unspecified; Z87.442 Personal history of urinary calculi
CPT/HCPCS: 96365; 87088; 85025; 87086; 80048; 36415; 76377; 74176; 96375; 99284; J3475; 81003; 81015

== ENCOUNTER 2021-10-30 20:44 | Emergency (ER) | payer BC ==
--- NOTE | 2021-10-30 22:19 | RAD REPORT ---
EXAM DESCRIPTION: CT - Stone Protocol - 10/30/2021 10:08 pm CLINICAL HISTORY: Abdominal pain. COMPARISON: June 2021 TECHNIQUE: Computed axial tomography of the abdomen pelvis was obtained without oral or IV contrast. Lack of IV and oral contrast limits evaluation of solid organs, appendix, bowel, and vessels. Toribio l reformatted images were obtained and reviewed. All CT scans are performed using dose optimization technique as appropriate and may include automated exposure control or mA/KV adjustment according to patient size. FINDINGS: 1 millimeter calculus left kidney. No hydronephrosis. No right renal calculus. Mild right hydronephrosis. Mild dilatation right ureter. 2 millimeter calcul us right UVJ Fatty liver. Spleen, pancreas and adrenals appear grossly normal There is no evidence of diverticulitis. The appendix appears normal Moderate to large right inguinal hernia contains fat. Small to moderate left inguinal hernia contains fat. Small umbilical hernia. Calcified granuloma left lung IMPRESSION: 2 millimeter calculus right UVJ resulting in mild right hydronephrosis
[2021-10-30] MEDS ORDERED: ONDANSETRON 4 MG/2 ML VIAL ONE (22:45)
[2021-10-30] MEDS ORDERED: NA CHLORIDE 0.9% 1,000 ML ONE (22:45)
[2021-10-30] MEDS ORDERED: MORPHINE 4 MG/ML SYR ONE (22:45)
[2021-10-30] MEDS ORDERED: TAMSULOSIN 0.4 MG SR CAP ONE (22:45)
[2021-10-30 23:03] LABS: Absolute Lymphocytes (CBC) 1.5 K/uL (0.7-4.9); Hematocrit 45.6 % (39.6-49.0); Lymphocytes % 20.7 % (15.3-44.8); MCV 87.3 fL (80-100); MPV 8.3 fL (7.6-11.3); RBC Red Blood Cell Count 5.22 M/uL (4.33-5.43)
[2021-10-30 23:35] LABS: Bilirubin Total 0.3 mg/dL (0.2-1.0); Potassium 4.1 mmol/L (3.5-5.1); Protein, Total 7.6 g/dL (6.4-8.2)
--- NOTE | 2021-10-31 01:22 | ER ---
Nurse's Notes [facility] Name: Eliot Ball III Age: 45 yrs Sex: Male : 1975 Arrival Date: 10/30/2021 Time: 20:55 Bed 6 Private MD: Allan Wilson C Diagnosis: Calculus of ureter Presentation: 10/30 21:22 Chief complaint: Patient states: "I have been here 2 times for kidney stones in the vc1 last few months and I feel like I have another one.". Coronavirus screen: Vaccine status: Patient reports receiving the 2nd dose of the covid vaccine. Moderna At this time, the client does not indicate any symptoms associated with coronavirus-19. Ebola Screen: No symptoms or risks identified at this time. Initial Sepsis Screen: Does the patient meet any 2 criteria? No. Patient's initial sepsis screen is negative. Does the patient have a suspected source of infection? No. Patient's initial sepsis screen is negative. Risk Assessment: Do you want to hurt yourself or someone else? Patient reports no desire to harm self or others. Onset of symptoms was October 30, 2021 at 20:30. 21:22 Method Of Arrival: Ambulatory vc1 21:22 Acuity: LENIN 3 vc1 Historical: - Home Meds: 21:24 lisinopril 10 mg Oral tab 1 tab once daily [Active]; metformin 750 mg Oral Tb24 1 tab vc1 once daily [Active]; sertraline 150 mg tab Oral tab 1 tab once daily [Active]; atorvastatin 20 mg oral tab 1 tab once daily [Active]; - PMHx: 21:24 Hypercholesterolemia; Hypertensive disorder; Kidney stone; vc1 - PSHx: 21:24 hernia, abdominal; vc1 - Immunization history:: Adult Immunizations up to date, Client reports receiving the Dexter \\T\\ Dexter single-dose vaccine. - Social history:: Smoking status: Patient denies any tobacco usage or history of. Screenin:56 Abuse screen: Denies threats or abuse. Denies injuries from another. Nutritional lg3 screening: No deficits noted. Tuberculosis screening: No symptoms or risk factors identified. Fall Risk None identified. Assessment: 22:56 General: Appears in no apparent distress. comfortable, Behavior is calm, cooperative. lg3 Pain: Complains of pain in right flank. Neuro: No deficits noted. Level of Consciousness is awake, alert, obeys commands, Oriented to person, place, time, situation. Cardiovascular: No deficits noted. Denies chest pain, shortness of breath, Capillary refill < 3 seconds Clubbing of nail beds is absent JVD is absent Patient's skin is warm and dry. Respiratory: No deficits noted. Airway is patent Trachea midline Respiratory effort is even, unlabored, Respiratory pattern is regular, symmetrical, Breath sounds are clear bilaterally. GI: Abdomen is round non-distended, Reports nausea. : Reports pain flank(s), urinary frequency. EENT: No deficits noted. No signs and/or symptoms were reported regarding the EENT system. Derm: No deficits noted. No signs and/or symptoms reported regarding the dermatologic system. Skin is intact, is healthy with good turgor, Skin is dry, Skin temperature is warm. Musculoskeletal: No deficits noted. No signs and/or symptoms reported regarding the musculoskeletal system. Circulation, motion, and sensation intact. Range of motion: intact in all extremities. 23:58 Reassessment: Patient appears in no apparent distress at this time. No changes from lg3 previously documented assessment. Patient and/or family updated on plan of care and expected duration. Pain level reassessed. Patient is alert, oriented x 3, equal unlabored respirations, skin warm/dry/pink. 10/31 01:34 Reassessment: Patient appears in no apparent distress at this time. No changes from lg3 previously documented assessment. Patient and/or family updated on plan of care and expected duration. Pain level reassessed. Patient is alert, oriented x 3, equal unlabored respirations, skin warm/dry/pink. Vital Signs: 10/30 21:22 BP 145 / 87; Pulse 74; Resp 20; Temp 98.1; Pulse Ox 100% ; Weight 97.07 kg; Height 5 vc1 ft. 9 in. (175.26 cm); Pain 7/10; 22:59 BP 142 / 88; Pulse 71; Resp 19 S; Pulse Ox 100% on R/A; lg3 10/31 01:34 BP 136 / 86; Pulse 74; Resp 18 S; Pulse Ox 100% on R/A; lg3 10/30 21:22 Body Mass Index 31.60 (97.07 kg, 175.26 cm) vc1 ED Course: 10/30 20:55 Patient arrived in ED. am2 20:55 Allan Wilson MD is Private Physician. am2 21:24 Triage completed. vc1 21:24 Arm band placed on right wrist. vc1 21:26 Alexi Mcdermott PA is PHCP. jmm 21:26 Edgar Ridley MD is Attending Physician. jmm 22:10 CT Stone Protocol In Process Unspecified. EDMS 22:34 Obdulia Nieves, RN is Primary Nurse. lg3 22:54 CBC with Diff Sent. lg3 22:54 CMP Sent. lg3 22:54 Lipase Sent. lg3 22:54 Inserted saline lock: 20 gauge in right forearm, using aseptic technique. Blood lg3 collected. 22:56 Patient has correct armband on for positive identification. Bed in low position. Call lg3 light in reach. Client placed on continuous cardiac and pulse oximetry monitoring. NIBP monitoring applied. Door closed. Noise minimized. Warm blanket given. 10/31 01:21 Juan Diego Damico MD is Referral Physician. [facility] 01:34 No provider procedures requiring assistance completed. IV discontinued, intact, lg3 bleeding controlled, No redness/swelling at site. Pressure dressing applied. Administered Medications: 10/30 22:53 Drug: NS 0.9% 1000 ml Route: IV; Rate: 1 bolus; Site: right forearm; lg3 10/31 01:35 Follow up: Response: No adverse reaction; IV Status: Completed infusion; IV Intake: lg3 1000ml 10/30 22:53 Drug: morphine 4 mg Route: IVP; Infused Over: 4 mins; Site: right forearm; lg3 22:54 Follow up: Response: No adverse reaction lg3 22:53 Drug: Flomax (tamsulosin) 0.4 mg Route: PO; lg3 22:54 Follow up: Response: No adverse reaction lg3 22:54 Drug: Zofran (Ondansetron) 4 mg Route: IVP; Site: right forearm; lg3 22:54 Follow up: Response: No adverse reaction lg3 10/31 01:34 Drug: Ketorolac 30 mg Route: IVP; Site: right forearm; lg3 01:34 Follow up: Response: No adverse reaction lg3 Medication: 01:35 VIS not applicable for this client. lg3 Intake: 01:35 IV: 1000ml; Total: 1000ml. lg3 Outcome: 01:21 Discharge ordered by MD. santiago 01:35 Discharged to home ambulatory. lg3 01:35 Condition: stable 01:35 Discharge instructions given to patient, Instructed on discharge instructions, follow up and referral plans. medication usage, Demonstrated understanding of instructions, follow-up care, medications, Prescriptions given X 4. 01:36 Patient left the ED. lg3 Signatures: Dispatcher [employer] EDMS Alexi Mcdermott PA PA jmm Moreno, Amanda am2 Gibson, Lacie, RN RN lg3 Amy Zavala RN RN vc1
--- NOTE | 2021-10-31 01:22 | EDPHYS ---
Physician Documentation [facility] Name: Eliot Ball III Age: 45 yrs Sex: Male : 1975 Arrival Date: 10/30/2021 Time: 20:55 Bed 6 Private MD: Allan Wilson C ED Physician Edgar Ridley HPI: 10/30 21:33 This 45 yrs old Male presents to ER via Ambulatory with complaints of Flank jmm Pain. 21:33 The patient complains of pain in the right flank. Onset: The symptoms/episode jmm began/occurred gradually, today. Modifying factors: The symptoms are alleviated by nothing. the symptoms are aggravated by nothing. Associated signs and symptoms: Pertinent negatives: fever. This is a 45 year old male with a history of hlp, htn that presents to the ED with complaints of right flank pain beginning earlier today. Denies vomiting, diarrhea. Patient state pain is similar to previous kidney stones. . Historical: - Home Meds: 21:24 lisinopril 10 mg Oral tab 1 tab once daily [Active]; metformin 750 mg Oral Tb24 1 tab vc1 once daily [Active]; sertraline 150 mg tab Oral tab 1 tab once daily [Active]; atorvastatin 20 mg oral tab 1 tab once daily [Active]; - PMHx: 21:24 Hypercholesterolemia; Hypertensive disorder; Kidney stone; vc1 - PSHx: 21:24 hernia, abdominal; vc1 - Immunization history:: Adult Immunizations up to date, Client reports receiving the Dexter \T\ Dexter single-dose vaccine. - Social history:: Smoking status: Patient denies any tobacco usage or history of. ROS: 21:33 Constitutional: Negative for fever, chills, and weight loss, Cardiovascular: Negative jmm for chest pain, palpitations, and edema, Respiratory: Negative for shortness of breath, cough, wheezing, and pleuritic chest pain. 21:33 Back: Positive for flank pain. 21:33 All other systems are negative. Exam: 21:33 Constitutional: This is a well developed, well nourished patient who is awake, alert, jmm and in no acute distress. Head/Face: atraumatic. Eyes: EOMI, no conjunctival erythema appreciated ENT: Moist Mucus Membranes Neck: Trachea midline, Supple Chest/axilla: Normal chest wall appearance and motion. Cardiovascular: Regular rate and rhythm. No edema appreciated Respiratory: Normal respirations, no respiratory distress appreciated 21:33 Skin: General appearance color normal MS/ Extremity: Moves all extremities, no obvious deformities appreciated, no edema noted to the lower extremities Neuro: Awake and alert Psych: Behavior is normal, Mood is normal, Patient is cooperative and pleasant 21:33 Abdomen/GI: Inspection: abdomen appears normal, Bowel sounds: normal, Palpation: soft, nontender. 21:33 Back: pain, that is mild, of the right flank. Vital Signs: 21:22 BP 145 / 87; Pulse 74; Resp 20; Temp 98.1; Pulse Ox 100% ; Weight 97.07 kg; Height 5 vc1 ft. 9 in. (175.26 cm); Pain 7/10; 22:59 BP 142 / 88; Pulse 71; Resp 19 S; Pulse Ox 100% on R/A; lg3 10/31 01:34 BP 136 / 86; Pulse 74; Resp 18 S; Pulse Ox 100% on R/A; 3 10/30 21:22 Body Mass Index 31.60 (97.07 kg, 175.26 cm) vc1 MDM: 10/30 21:33 Patient medically screened. [facility] 10/31 00:52 Data reviewed: vital signs, nurses notes. Counseling: I had a detailed discussion with pamela the patient and/or guardian regarding: the historical points, exam findings, and any diagnostic results supporting the discharge/admit diagnosis, lab results, radiology results, the need for outpatient follow up, to return to the emergency department if symptoms worsen or persist or if there are any questions or concerns that arise at home. ED course: Patient is alert and non toxic in appearance in the ED. No signs of sepsis. patient advised to follow up with pcp and otherwise given strict return precautions. Patient understood and agrees with the plan of care. . 10/30 21:40 Order name: CBC with Diff; Complete Time: 23:[address] [facility] 10/30 21:40 Order name: CMP; Complete Time: 23:[address] [facility] 10/30 21:40 Order name: Lipase; Complete Time: 23:[address] [facility] 10/30 21:40 Order name: CT Stone Protocol; Complete Time: 22:[address] [facility] 10/31 01:26 Order name: Urine Dipstick-Ancillary [facility] 10/30 21:40 Order name: IV Saline Lock; Complete Time: 22:[address] [facility] 10/30 21:40 Order name: Labs collected and sent; Complete Time: 22:[address] [facility] 10/31 00:54 Order name: Urine Dipstick-Ancillary (obtain specimen); Complete Time: 01:[address] [facility] Administered Medications: 10/30 22:53 Drug: NS 0.9% 1000 ml Route: IV; Rate: 1 bolus; Site: right forearm; lg3 10/31 01:35 Follow up: Response: No adverse reaction; IV Status: Completed infusion; IV Intake: lg3 1000ml 10/30 22:53 Drug: morphine 4 mg Route: IVP; Infused Over: 4 mins; Site: right forearm; lg3 22:54 Follow up: Response: No adverse reaction lg3 22:53 Drug: Flomax (tamsulosin) 0.4 mg Route: PO; lg3 22:54 Follow up: Response: No adverse reaction lg3 22:54 Drug: Zofran (Ondansetron) 4 mg Route: IVP; Site: right forearm; lg3 22:54 Follow up: Response: No adverse reaction [facility] 10/31 01:34 Drug: Ketorolac 30 mg Route: IVP; Site: right forearm; lg3 01:34 Follow up: Response: No adverse reaction lg3 Disposition Summary: 10/31/21 01:21 Discharge Ordered Location: Home [facility] Condition: Stable [facility] Diagnosis - Calculus of ureter [facility] Followup: [facility] - With: Juan Diego Damico MD - When: 2 - 3 days - Reason: Recheck today's complaints, Continuance of care, Re-evaluation by your physician Discharge Instructions: - Discharge Summary Sheet [facility] - Kidney Stones, Bvoc-ps-Arne [facility] - Dietary Guidelines to Help Prevent Kidney Stones [facility] Forms: - Medication Reconciliation Form [facility] - Thank You Letter [facility] - Antibiotic Education [facility] - Prescription Opioid Use [facility] Prescriptions: - Cephalexin 500 mg Oral Capsule - take 1 capsule by ORAL route every 8 hours for 10 days; 30 capsule; Refills: 0, [facility] Product Selection Permitted - Flomax 0.4 mg Oral capsule - take 1 capsule by ORAL route once daily 1/2 hour following the same meal each [facility] day; 10 capsule; Refills: 0, Product Selection Permitted - ondansetron 4 mg Oral tablet,disintegrating - take 1 tablet by ORAL route every 4-6 hours As needed; 20 tablet; Refills: 0, jm Product Selection Permitted - Ultracet 37.5-325 mg Oral Tablet - take 1 tablet by ORAL route every 6 hours - for up to 5 days; do not exceed 8 jmm tablets per day.; 12 tablet; Refills: 0, Product Selection Permitted Signatures: Dispatcher [employer] Edgar Balbuena MD MD cha Mickail, Joel, PA PA jmm Gibson, Lacie, RN RN lg3 Amy Zavala RN RN vc1
[2021-10-31 01:26] LABS: Urine Blood 3+ (Negative); Urine Glucose 2+ (Negative); Urine Protein Negative (Negative); Urine Specific Gravity 1.025 (1.005-1.030)
[2021-10-31] MEDS ORDERED: KETOROLAC 30 MG/ML INJ ONE (01:36)
[2021-10-31 02:00] VITALS: TEMP 98.1; O2SAT 100
[2021-10-31 02:03] VITALS: BP 136/86
== END 2021-10-31 01:36 | disposition home or self-care (01) ==
LOC: ER 20:44
DX: N20.1 Calculus of ureter (principal); Z87.442 Personal history of urinary calculi; I10 Essential (primary) hypertension; E78.00 Pure hypercholesterolemia, unspecified
CPT/HCPCS: 96361; 85025; 36415; 81003; 83690; 80053; 76377; 74176; 96375; 96374; 99284; J7030; J2405

== ENCOUNTER 2025-01-31 17:57 | Emergency (ER) | payer BC, OTHER ==
[2025-01-31 18:41] LABS: Absolute Lymphocytes (CBC) 1.4 K/uL (0.7-4.9); Hematocrit 49.5 % (39.6-49.0); Hemoglobin 16.5 g/dL (13.6-17.9); MCH 29.4 pg (27.0-35.0); MCHC 33.3 g/dL (32.0-36.0); MCV 88.3 fL (80-100); MPV 7.9 fL (7.6-11.3); Nucleated RBC Absolute Count 0.0 (0-0); Nucleated Red Blood Cells % 0.1 % (0-0); RBC Red Blood Cell Count 5.60 M/uL (4.33-5.43); White Blood Count 6.30 thou/uL (4.3-10.9)
[2025-01-31 18:53] LABS: PT Prothrombin Time 12.1 SECONDS (10-13.0); PTT, Activated Partial Thromb 31.9 SECONDS (27.2-37.4); Protime INR 1.07
[2025-01-31 19:13] LABS: ALT/SGPT 64 U/L (16-61); Albumin 3.8 g/dL (3.4-5.0); Albumin/Globulin Ratio 1.0 (1.1-1.8); Alkaline Phosphatase 51 U/L (45-117); Anion Gap 9.4 mEq/L (5.0-15.0); BUN Blood Urea Nitrogen 10 mg/dL (7-18); Bilirubin Indirect, Calculated 0.7 mg/dL (0.2-0.8); Globulin 3.7 g/dL (2.3-3.5); Glucose Level 278 mg/dL (74-106)
[2025-01-31 19:20] LABS: AST/SGOT 26 U/L (15-37); Potassium 3.4 mEq/L (3.5-5.1)
[2025-01-31] MEDS ORDERED: HYDRALAZINE HCL 20 MG/ML VIAL ONE ×2 (19:24→21:37)
[2025-01-31 20:45] LABS: METHAMPHETAM NEGATIVE (NEGATIVE); THC Cannibis NEGATIVE (NEGATIVE)
--- NOTE | 2025-01-31 23:38 | EDPHYS ---
Physician Documentation [facility] Name: Eliot Ball III Age: 49 yrs Sex: Male : 1975 Arrival Date: 01/31/2025 Time: 17:57 Bed 16 Private MD: ED Physician Denny Mcelroy HPI: 01/31 18:15 This 49 yrs old Male presents to ER via Ambulatory with complaints of sent by cp renny. 18:15 The patient presents to the emergency department with depression, over a relationship, cp in process of divorce, over work, suicide ideation, but the patient has no formulated plan. Onset: The symptoms/episode began/occurred gradually. Associated signs and symptoms: Pertinent negatives: abdominal pain, chest pain, hallucinations, headache, paranoia, shortness of breath, substance abuse. Historical: - Allergies: 17:57 No Known Allergies; rg5 - PMHx: 17:57 Hypercholesterolemia; Hypertensive disorder; Kidney stone; rg5 - PSHx: 17:57 hernia; rg5 - Immunization history:: Adult Immunizations not up to date. - Infectious Disease History:: Denies. - Social history:: Smoking status: Patient denies any tobacco usage or history of. ROS: 18:20 Neuro: Negative for altered mental status, dizziness, weakness, cp 18:20 Psych: Positive for depression, suicidal ideation, cp 18:20 Constitutional: Negative for body aches, chills, fever, poor PO intake, cp 18:20 Eyes: Negative for injury, pain, redness, and discharge, cp 18:20 ENT: Negative for drainage from ear(s), ear pain, sore throat, difficulty swallowing, difficulty handling secretions, 18:20 Cardiovascular: Negative for chest pain, edema, palpitations, 18:20 Respiratory: Negative for cough, shortness of breath, wheezing, 18:20 Abdomen/GI: Negative for abdominal pain, vomiting, diarrhea, constipation, 18:20 Back: Negative for pain at rest, pain with movement, 18:20 All other systems are negative, Exam: 18:25 Constitutional: The patient appears in no acute distress, alert, awake, cp non-diaphoretic, non-toxic, well developed, well nourished, 18:25 Head/Face: Normocephalic, atraumatic. cp 18:25 Eyes: Periorbital structures: appear normal, Pupils: equal, round, and reactive to light and accomodation, Extraocular movements: intact throughout, Conjunctiva: normal, no exudate, no injection, Sclera: no appreciated abnormality, Lids and lashes: appear normal, bilaterally, 18:25 ENT: External ear(s): are unremarkable, Nose: is normal, Mouth: Lips: moist, Oral mucosa: moist, Posterior pharynx: Airway: no evidence of obstruction, patent, 18:25 Chest/axilla: Inspection: normal, 18:25 Cardiovascular: Rate: normal, Rhythm: regular, Edema: is not appreciated, JVD: is not appreciated, 18:25 Respiratory: the patient does not display signs of respiratory distress, Respirations: normal, no use of accessory muscles, no retractions, labored breathing, is not present, Breath sounds: are clear throughout, no decreased breath sounds, no stridor, no wheezing, 18:25 Abdomen/GI: Inspection: abdomen appears normal, Palpation: abdomen is soft and non-tender, in all quadrants, 18:25 Back: pain, is absent, ROM is normal, 18:25 Neuro: Orientation: to person, place \T\ time. Mentation: is normal, 18:25 Psych: Behavior/mood is pleasant, cooperative, Affect is calm, Judgement / Insight is normal. 18:33 ECG was reviewed by the Attending Physician. cp Vital Signs: 17:57 BP 182 / 101; Pulse 83; Resp 18; Temp 98; Pulse Ox 98% ; Weight 90.26 kg; Height 5 ft. rg5 9 in. ; Pain 0/10; 19:41 BP 184 / 103; Pulse 99; Resp 17; Temp 98.6; Pulse Ox 100% on R/A; vk 20:30 BP 175 / 97; Pulse 93; Resp 18; Pulse Ox 96% ; rg5 21:22 BP 185 / 104; Pulse 90; Resp 18; Pulse Ox 96% ; Pain 0/10; rg5 22:26 BP 158 / 96; Pulse 100; Resp 18; Pulse Ox 97% ; Pain 0/10; rg5 23:16 BP 150 / 88; Pulse 100; Resp 17; Pulse Ox 95% ; Pain 0/10; rg5 17:57 Body Mass Index 29.39 (90.26 kg, 175.26 cm) rg5 17:57 Pain Scale: Adult rg5 21:22 Pain Scale: Adult rg5 22:26 Pain Scale: Adult rg5 23:16 Pain Scale: Adult rg5 MDM: 18:06 Medical Screening Exam initiated cp 19:00 Differential diagnosis: drug withdrawal. acute psychotic break, depression, psychosis cp secondary to non-compliance. 23:30 Data reviewed: vital signs, nurses notes, lab test result(s), EKG, and as a result, I cp will discharge patient. 23:30 Care significantly affected by the following chronic conditions: Hypertension. ED cp course: Evaluation performed by [facility] who recommends outpatient treatment. Patient is informed that intake evaluation can be performed tomorrow at the [facility]. 23:36 I considered the following discharge prescriptions or medication management in the cp emergency department Medications were administered in the Emergency Department. See MAR. 23:36 Independent interpretation of the following test(s) in the Emergency Department EKG: cp See my EKG interpretation above. Counseling: I had a detailed discussion with the patient and/or guardian regarding the historical points, exam findings, and any diagnostic results supporting the discharge/admit diagnosis, lab results, the need for outpatient follow up, for definitive care, an colon therapist, a psychiatrist, to return to the emergency department if symptoms worsen or persist or if there are any questions or concerns that arise at home. Response to treatment: the patient's symptoms have mildly improved after treatment, and as a result, I will discharge patient. 01/31 18:10 Order name: Acetaminophen; Complete Time: 19:28 cp 01/31 18:10 Order name: Basic Metabolic Panel; Complete Time: 19:28 cp 01/31 18:10 Order name: CBC with Diff; Complete Time: 19:08 cp 01/31 18:10 Order name: ETOH Level; Complete Time: 19:08 cp 01/31 18:10 Order name: Hepatic Function; Complete Time: 19:28 cp 01/31 18:10 Order name: PT-INR; Complete Time: 19:08 cp 01/31 18:10 Order name: Ptt, Activated; Complete Time: 19:08 cp 01/31 18:10 Order name: Salicylate; Complete Time: 19:28 cp 01/31 18:10 Order name: Urine Drug Screen; Complete Time: 21:11 cp 01/31 21:11 Interpretation: Reviewed. 01/31 18:10 Order name: EKG - Nurse/Tech; Complete Time: 18:46 cp 01/31 18:10 Order name: IV Saline Lock; Complete Time: 18:46 cp 01/31 18:10 Order name: Labs collected and sent; Complete Time: 18:46 cp 01/31 18:10 Order name: Suicide Precautions; Complete Time: 19:03 cp 01/31 18:10 Order name: Suicide Screening ([place]); Complete Time: 19:03 cp EC:33 Rate is 92 beats/min. Rhythm is regular. WI interval is normal. QRS interval is normal. cp QT interval is normal. T waves are Inverted in lead aVR. Interpreted by me. Reviewed by me. Administered Medications: 19:34 Drug: hydrALAZINE IVP 10 mg IVP once Route: IVP; Site: left forearm; rg5 21:02 Follow up: Response: Blood pressure is lowered rg5 19:56 Drug: Lisinopril PO 20 mg PO once Route: PO; rg5 21:02 Follow up: Response: Blood pressure is lowered rg5 21:31 Drug: hydrALAZINE IVP 10 mg IVP once Route: IVP; Site: left forearm; rg5 22:24 Follow up: Response: No adverse reaction; Blood pressure is lowered rg5 Disposition: 02/01 01:52 Co-signature as Attending Physician, Denny Mcelroy DO I reviewed the patient's care tt7 provided by the Advanced Practice Provider and agree with the diagnosis and treatment plan. Disposition Summary: 01/31/25 23:37 Discharge Ordered Notes: Location: Home cp Problem: new cp Symptoms: have improved cp Condition: Stable cp Diagnosis - Hypertensive heart disease without heart failure cp - Other depressive episodes cp Followup: cp - With: Roshan Wilson MD - When: 1 week - Reason: hypertension Discharge Instructions: - Hypertension, Adult cp - Aspirin and Your Heart cp - Form - Blood Pressure Record Sheet cp - Managing Depression, Adult cp - How to Take Your Blood Pressure cp - Discharge Summary Sheet rv1 Forms: - Medication Reconciliation Form cp - Antibiotic Education cp - Prescription Opioid Use cp - Patient Portal Instructions cp - Leadership Thank You Letter cp - SBAR form rv1 Prescriptions: - Lisinopril-Hydrochlorothiazide 20-12.5 mg Oral tablet - take 1 tablet ORAL route once daily; 30 tablet; Refills: 0, Product Selection cp Permitted Signatures: Dispatcher [employer] Edgar Hernandez PA-C PA-C cp Gallardo, Rommel, RN RN rg5 Denny Mcelroy, DO DO tt7
--- NOTE | 2025-01-31 23:38 | ER ---
Nurse's Notes [facility] Name: Eliot Ball III Age: 49 yrs Sex: Male : 1975 Arrival Date: 01/31/2025 Time: 17:57 Bed 16 Private MD: Diagnosis: Hypertensive heart disease without heart failure;Other depressive episodes Presentation: 01/31 17:57 Chief complaint: Patient states: I was in Dr. Lawson's clinic for check up, my blood rg5 pressure was high and I don't take anymore, told Dr. lawson that I don't care if I get a heart attack. I just want to get help with psych deal with anxiety \\T\\ deppression. 17:57 Coronavirus screen: Client denies travel out of the [place] in the last 14 days. Ebola rg5 Screen: Patient negative for fever greater than or equal to 101.5 degrees Fahrenheit, and additional compatible Ebola Virus Disease symptoms Patient denies exposure to infectious person. Patient denies travel to an Ebola-affected area in the 21 days before illness onset. Initial Sepsis Screen: Does the patient meet any 2 criteria? No. Patient's initial sepsis screen is negative. Does the patient have a suspected source of infection? No. Patient's initial sepsis screen is negative. Risk Assessment: Do you want to hurt yourself or someone else? Patient reports no desire to harm self or others. Onset of symptoms was January 31, 2025. Care prior to arrival: None. 17:57 Method Of Arrival: Ambulatory rg5 17:57 Acuity: LENIN 4 rg5 17:57 Acuity: LENIN 2 rg5 Triage Assessment: 17:57 General: Appears in no apparent distress. comfortable, Behavior is calm, cooperative, rg5 appropriate for age. Pain: Denies pain. EENT: No deficits noted. Neuro: Level of Consciousness is awake, alert, obeys commands, Oriented to person, place, time, situation. Cardiovascular: Denies chest pain, Patient's skin is warm and dry. Rhythm is sinus rhythm. Respiratory: Airway is patent Trachea midline Respiratory effort is even, unlabored, Respiratory pattern is regular, symmetrical. GI: Abdomen is round non-distended. : No signs and/or symptoms were reported regarding the genitourinary system. Derm: Skin is intact, Skin is dry, Skin is normal, Skin temperature is warm. Musculoskeletal: Historical: - Allergies: 17:57 No Known Allergies; rg5 - PMHx: 17:57 Hypercholesterolemia; Hypertensive disorder; Kidney stone; rg5 - PSHx: 17:57 hernia; rg5 - Immunization history:: Adult Immunizations not up to date. - Infectious Disease History:: Denies. - Social history:: Smoking status: Patient denies any tobacco usage or history of. Screenin:00 [facility] ED Fall Risk Assessment (Adult) History of falling in the last 3 months, rg5 including since admission No falls in past 3 months (0 pts) Confusion or Disorientation No (0 pts) Intoxicated or Sedated No (0 pts) Impaired Gait No (0 pts) Mobility Assist Device Used No (0 pt) Altered Elimination No (0 pt) Score/Fall Risk Level 0 - 2 = Low Risk Oriented to surroundings, Maintained a safe environment. Abuse screen: Denies threats or abuse. Nutritional screening: No deficits noted. Tuberculosis screening: No symptoms or risk factors identified. Assessment: 18:45 Reassessment: No changes from previously documented assessment. Patient and/or family rg5 updated on plan of care and expected duration. Pain level reassessed. Patient is alert, oriented x 3, equal unlabored respirations, skin warm/dry/pink. 19:25 Reassessment: No changes from previously documented assessment. Patient and/or family rg5 updated on plan of care and expected duration. Pain level reassessed. Patient is alert, oriented x 3, equal unlabored respirations, skin warm/dry/pink. 20:30 Reassessment: No changes from previously documented assessment. Patient and/or family rg5 updated on plan of care and expected duration. Pain level reassessed. Patient is alert, oriented x 3, equal unlabored respirations, skin warm/dry/pink. 21:23 Reassessment: No changes from previously documented assessment. Patient and/or family rg5 updated on plan of care and expected duration. Pain level reassessed. Patient is alert, oriented x 3, equal unlabored respirations, skin warm/dry/pink. 22:26 Reassessment: No changes from previously documented assessment. Patient and/or family rg5 updated on plan of care and expected duration. Pain level reassessed. Patient is alert, oriented x 3, equal unlabored respirations, skin warm/dry/pink. 23:40 Reassessment: Patient and/or family updated on plan of care and expected duration. Pain rg5 level reassessed. Patient is alert, oriented x 3, equal unlabored respirations, skin warm/dry/pink. Patient states feeling better. Psych: 17:57 [place] Suicide Severity Screening: In the past month, have you wished you were rg5 or wished you could go to sleep and not wake up? Patient responds "No." "In the past month, have you actually had any thoughts of killing yourself?" Patient responds "no." "In your lifetime, have you ever done anything, started to do anything, or prepared to do anything to end your life?" Patient responds "no.". Subjective: Patient's mood is sad, hopeless. Objective: Patient is cooperative, Speech is normal, Affect is appropriate. Interventions: Removed personal items and placed in bag. Patient placed in hospital gown. Searched person for dangerous items. Urine collected and sent for urine drug test. Belonging list filled out. Safety Checks: Personal items have been removed. Door is open. No visitors are present at this time. Pt denies substance abuse. 18:00 Commitment: Patient will be a voluntary commitment. rg5 Vital Signs: 17:57 BP 182 / 101; Pulse 83; Resp 18; Temp 98; Pulse Ox 98% ; Weight 90.26 kg; Height 5 ft. rg5 9 in. ; Pain 0/10; 19:41 BP 184 / 103; Pulse 99; Resp 17; Temp 98.6; Pulse Ox 100% on R/A; vk 20:30 BP 175 / 97; Pulse 93; Resp 18; Pulse Ox 96% ; rg5 21:22 BP 185 / 104; Pulse 90; Resp 18; Pulse Ox 96% ; Pain 0/10; rg5 22:26 BP 158 / 96; Pulse 100; Resp 18; Pulse Ox 97% ; Pain 0/10; rg5 23:16 BP 150 / 88; Pulse 100; Resp 17; Pulse Ox 95% ; Pain 0/10; rg5 17:57 Body Mass Index 29.39 (90.26 kg, 175.26 cm) rg5 17:57 Pain Scale: Adult rg5 21:22 Pain Scale: Adult rg5 22:26 Pain Scale: Adult rg5 23:16 Pain Scale: Adult rg5 ED Course: 17:57 Arm band placed on. EKG completed in triage. Results shown to MD. rg5 18:00 Safety Checks: Personal items have been removed. The door is open or patient has been rg5 placed in a hallway bed/chair. Sitter present at this time. 18:00 No provider procedures requiring assistance completed. rg5 18:00 Patient has correct armband on for positive identification. Placed in gown. Client rg5 placed on continuous cardiac and pulse oximetry monitoring. NIBP monitoring applied. cafeteria monitor on. Pulse ox on. NIBP on. Noise minimized. Patient is placed in psych hold. Patient is placed in psych hold. 18:01 Patient arrived in ED. al6 18:06 [facility] cp 18:06 Jerrell Dunham MD is Attending Physician. cp 18:26 Sukumar Mccormick, JOSE MARIA is Primary Nurse. rg5 18:53 Initial lab(s) drawn, by ma, sent to lab. EKG done, by ED staff, reviewed by Edgar españa PA-C. Inserted saline lock: 20 gauge in left forearm, using aseptic technique. Blood collected. Flushed with 10 mL NS. 18:56 Triage completed. rg5 19:20 Denny Mcelroy DO is Attending Physician. cp 19:42 Noise minimized. Visitors limited. vk 19:54 [facility] notified for screening. rv1 20:15 Babar with [facility] said her ETA is 2028. rv1 20:37 Urine Drug Screen Sent. vk 20:37 Urine collected: clean catch specimen, clear. vk 20:39 [facility] arrived for screening. vk 23:36 Roshan Lawson MD is Referral Physician. cp 02/01 00:10 Patient transferred, IV remains in place. bleeding controlled, No redness/swelling at rg5 site. Pressure dressing applied. 00:10 Provided Education on: post er care done. rg5 Administered Medications: 01/31 19:34 Drug: hydrALAZINE IVP 10 mg IVP once Route: IVP; Site: left forearm; rg5 21:02 Follow up: Response: Blood pressure is lowered rg5 19:56 Drug: Lisinopril PO 20 mg PO once Route: PO; rg5 21:02 Follow up: Response: Blood pressure is lowered rg5 21:31 Drug: hydrALAZINE IVP 10 mg IVP once Route: IVP; Site: left forearm; rg5 22:24 Follow up: Response: No adverse reaction; Blood pressure is lowered rg5 Medication: 18:00 VIS not applicable for this client. rg5 Outcome: 23:37 Discharge ordered by MD. ghosh 02/01 00:10 Discharged to home ambulatory, rg5 Condition: stable Discharge instructions given to patient, family, Instructed on discharge instructions, follow up and referral plans. Demonstrated understanding of instructions, follow-up care, medications, Prescriptions given X 1, 00:11 Patient left the ED. rg5 Signatures: Edgar Kessler PA-C PA-C cp Villegas, Rebecca rv1 Miranda Mosley Tylor ty Gallardo, Rommel, RN RN rg5 Tracy Moon6 Corrections: (The following items were deleted from the chart) 01/31 19:15 17:57 Chief complaint: Patient states: I was in Dr. Lawson's clinic for check up, my rg5 blood pressure was high and I don't take anymore the medications cause I feel I don't need it anymore. I am going to a divorce. rg5
[2025-02-01 01:05] VITALS: TEMP 98.6
[2025-02-01 01:11] VITALS: BP 150/88; O2SAT 95
== END 2025-02-01 00:11 | disposition home or self-care (01) ==
LOC: ER 17:57
DX: F32.89 Other specified depressive episodes (principal); I11.9 Hypertensive heart disease without heart failure; I10 Essential (primary) hypertension
CPT/HCPCS: 93005; 85025; 80048; 36415; 85610; 80076; 85730; 80307; 96374; 99285; 80143; 80179; 82077; J0360 ×2